=== PATIENT | male | born 1950 | race Caucasian/White ===

== ENCOUNTER → 2017-02-22 | Outpatient (CLI) | payer MEDICARE, OTHER | END | disposition home or self-care (01) | LOC: GMAH 10:58 | PROVIDERS: ATTEND Family Medicine | DX: R39.12 Poor urinary stream (principal) ==

== ENCOUNTER 2019-11-25 18:36 | Emergency (ER) | payer MEDICARE, OTHER ==
[2019-11-25] MEDS ORDERED: BUPIVACAINE 0.5% 30 ML VIAL INJ ONE (18:46)
--- NOTE | 2019-11-25 18:48 | ED.PDOC ---
History of Present Illness - General Chief Complaint: Trauma Stated Complaint: fell on a compressor and hurt my finger and my face Time Seen by Provider: 11/25/19 18:40 Source: patient, family Exam Limitations: no limitations - History of Present Illness Initial Comments: 69 y/o male fell on a compressor and injured his finger, and face. He thinks he lost consciousness for an unknown amount of time. c/o of head and neck pain as well. He has had neck surgery in the past. Occurred: just prior to arrival Severity: moderate Pain Location: head, face, neck Method of Injury: fall Loss of Consciousness: unsure Associated Symptoms (Fall): headache, neck pain Allergies/Adverse Reactions: Allergies NO KNOWN ALLERGY Allergy (Verified 11/25/19 19:19) Home Medications: Ambulatory Orders Omeprazole [Prilosec Cap] PO DAILY 11/25/19 Review of Systems - Review of Systems Constitutional: States: no symptoms reported EENTM: States: nose pain, other - laceration to nose and upper lip, finger Respiratory: States: no symptoms reported Cardiology: States: no symptoms reported Gastrointestinal/Abdominal: States: no symptoms reported Genitourinary: States: no symptoms reported Musculoskeletal: States: other - laceration 2.5 cm to R fith digit Skin: States: other - abrasion to L cheek, lac to nose and below nose Neurological: States: no symptoms reported Family Medical History - Family History Mother Family History: Unknown Living Status: Unknown Physical Exam - Physical Exam General Appearance: Alert, Comfortable, No apparent distress Head Injury: lacerations - 2.5 cm lateral to L eyebrow, 4.5 cm laceration to nose with 3 other 1-1.5 cm near the antrum. ENT Exam: hearing grossly normal, no dental injury Neck Exam: normal inspection, limited range of motion, other - surgical scar posterior midline Cardiovascular/Respiratory: regular rate, rhythm, no M/R/G, no JVD, normal breath sounds, no respiratory distress Back Exam: normal inspection, no vertebral tenderness Extremity Exam: normal range of motion, other - R 5th digit laceration just distal to DIP. Intect flexion and extension Neurologic: no motor/sensory deficits, alert, normal mood/affect, oriented x 3, other - normal gait - [place] Coma Score Best Eye Response ([place]): (4) open spontaneously Best Verbal Response ([place]): (5) oriented Best Motor Response ([place]): (6) obeys commands Procedures - Laceration/Wound Repair Left Face Wound Length (cm): 3 Wound's Depth, Shape: superficial Wound Explored: clean Anesthesia: 0.5% Sensorcaine Wound Debrided: minimal Wound Repaired With: sutures Suture Size/Type: 5:0, nylon Number of Sutures: 5 Layer Closure?: No Sterile Dressing Applied?: Yes Right Finger Wound Length (cm): 2.5 Wound's Depth, Shape: irregular Wound Explored: clean Anesthesia: 0.5% Sensorcaine Volume Anesthetic (cc's): 3 - digital block Wound Debrided: minimal Wound Repaired With: sutures Suture Size/Type: 4:0, prolene Number of Sutures: 7 Layer Closure?: No Deep Layer Suture Size/Type: 4:0 Sterile Dressing Applied?: Yes Splint Applied?: No Departure - Departure Clinical Impression: Laceration of face Qualifiers: Encounter type: initial encounter Qualified Code(s): S01.81XA - Laceration without foreign body of other part of head, initial encounter Abrasion of face Qualifiers: Encounter type: initial encounter Qualified Code(s): S00.81XA - Abrasion of other part of head, initial encounter Finger laceration Qualifiers: Encounter type: initial encounter Finger: little finger Damage to nail status: without damage Foreign body presence: without foreign body Laterality: right Qualified Code(s): S61.216A - Laceration without foreign body of right little finger without damage to nail, initial encounter Disposition: Discharge to Home or Self Care Departure Forms: ED Discharge - Pt. Copy, Patient Portal Self Enrollment Instructions: DI for Trauma Home Medications: Ambulatory Orders Omeprazole [Prilosec Cap] PO DAILY 11/25/19
[2019-11-25 19:04] VITALS: TEMP 97.8
[2019-11-25] MEDS ORDERED: CHLORHEXIDINE GLUCONATE 4 % 15 ML UD TOP ONE (19:05)
[2019-11-25] MEDS: TETANUS,DIPHTHERIA,PERTUSSIS 1 EA SYG IM ONE (19:07)
[2019-11-25] MEDS: BUPIVACAINE 0.25% INJ 30 ML VIAL INJ ONE (19:10)
--- NOTE | 2019-11-25 19:50 | CT ---
EXAM: Cervical Spine (accession [id number]), Head (accession [id number]) CLINICAL INDICATION: 69-year-old male with headache status post trauma. COMPARISON: None. TECHNIQUE: CT brain without contrast. This exam was performed according to our departmental dose optimization program which includes use of automated exposure control, adjustment of the mA and/or kV according to patient size and/or use of iterative reconstruction technique. FINDINGS: The ventricles, sulci, and cisterns are symmetric and unremarkable. The osorio-white matter differentiation is preserved. There is no mass effect, midline shift, intra- or extra-axial fluid collection/acute hemorrhage. The osseous structures are unremarkable. The paranasal sinuses and mastoid air cells are clear. IMPRESSION: 1. No acute intracranial abnormalities. TECHNIQUE: Cervical spine CT was performed without contrast. Multiplanar reformatted images were provided. This exam was performed according to our departmental dose optimization program which includes use of automated exposure control, adjustment of the mA and/or kV according to patient size and/or use of iterative reconstruction technique. COMPARISON: None. FINDINGS: There is normal alignment of the cervical spine without fracture or subluxation. The facets are normal in alignment bilaterally. The posterior elements including the spinous processes are intact. Straightening of the cervical spine which may be secondary to positioning for the examination. Morphology and attenuation of the vertebral bodies and intervertebral disk spaces is compatible with multilevel degenerative change. Multilevel loss of vertebral body height. Multilevel posterior osseous spurring results in moderate to severe neuroforaminal narrowing throughout the cervical spine. Postoperative changes are identified with multilevel laminectomy of the C3, C4, C5 and C6 vertebral levels. Cerclage wires traverse the spinous processes of C2 and C7. Small central disk herniation at C2-3 measures 3 mm. The pre-and paravertebral soft tissues are within normal limits. IMPRESSION: 1. Straightening of the cervical spine which may be secondary to positioning for the examination versus spasm. 2. Multilevel degenerative and postoperative changes without fracture or acute subluxation. Electronically signed by: Minerva Smith MD 11/25/2019 7:48 PM CDT
[2019-11-25 20:07] VITALS: BP 163/91; O2SAT 93
== END 2019-11-25 20:27 | disposition home or self-care (01) ==
LOC: ER 18:36
DX: S01.81XA Laceration without foreign body of other part of head, initial encounter (principal); S00.81XA Abrasion of other part of head, initial encounter; S61.216A Laceration without foreign body of right little finger without damage to nail, initial encounter; W18.09XA Striking against other object with subsequent fall, initial encounter; Y92.9 Unspecified place or not applicable